=== PATIENT | female | born 1965 | race Caucasian/White ===

== ENCOUNTER → 2017-12-31 07:02 | Outpatient (CLI) | payer OTHER, SELFPAY ==
--- NOTE | 2017-12-31 | EMB_PTH ---
PATIENT: IJEOMA BRAN LOC: [facility] U#:[id number] AGE/SX: 60/F ROOM: RE12/31/[address]: Gabriela Primary Care Phys : [id number] BED: DIS: SPEC #: [id number] RECD: 12/31/17 18:07 STATUS: NARESH LITZY #: [id number] TERENCE: 12/31/17 00:[address]: Kinza Rahman DEPT: SURGICAL PATHOLOGY RECD BY: Galo Gonzalez ENTERED: 01/01/18 08:22 SP TYPE: ENDOM BX/C OTHR DR: MD Gabriela Del Rio Primary Care Phys Tissues: Endometrium, NOS Procedures: Surgery Specimen Level IV Comments: @ Ordering doctor for SUIV edited from [facility] to @ by RGOOD at 01/01/18 1543 @ Submitting doctor edited from [facility] to @ by RGOOD at 01/01/18 1543 HEADER OPERATION: Endometrial biopsy PRE-OP DIAGNOSIS: Postmenopausal bleeding TISSUE SUBMITTED: Endometrial biopsy MICROSCOPIC DIAGNOSIS Endometrial biopsy: Strips and superficial fragments of weakly proliferative endometrium. MC:chung 01/02/18 COMMENT Clinical correlation and appropriate follow up are necessary. MICROSCOPIC DESCRIPTION Slides are reviewed. GROSS DESCRIPTION Received in fixative is one container labeled with the patient's name and designated endometrial biopsy. The specimen consists of multiple fragments of hemorrhagic mucoid tissue that in aggregate measure 2 x 2 x 0.3 cm. The specimen is totally submitted in one cassette. / MC:chung 01/01/18 TC:5 CPT: 40161
== END ==
PROVIDERS: Family Provider Obstetrics & Gynecology; PCP Obstetrics & Gynecology
DX: N89.8 Other specified noninflammatory disorders of vagina (principal); N95.0 Postmenopausal bleeding
CPT/HCPCS: 88305